=== PATIENT | female | born 1960 | race Caucasian/White ===

== ENCOUNTER 2020-04-21 18:28 | Inpatient (IN) ==
[2020-04-21] MEDS ORDERED: *HR* HYDROmorphone (PF) 1 MG/ML SYRINGE IVP ONE ×2 (19:05→21:29)
[2020-04-21] MEDS ORDERED: Ampicillin/Sulbactam 1,500 MG in 0.9 % Sodium Chloride Mini Bag 100 ML IVPB ONE (19:19)
[2020-04-21 19:23] LABS: Basophils # 0.1 K/mcL (0.0-0.2); Basophils % 0.5 %; Eosinophils # 0.2 K/mcL (0.0-0.6); Eosinophils % 0.8 %; Hematocrit 38.5 % (35.3-44.9); Hemoglobin 12.7 g/dL (11.5-15.4); Immature Granulocytes % 1.3 % (0-4); Lymphocytes # 3.5 K/mcL (0.6-4.6); Lymphocytes % 15.1 %; Mean Corpuscular Hemoglobin 31.8 pg (28.0-33.3); Mean Corpuscular Volume 96.5 fL (83.0-100.0); Mean Platelet Volume 8.3 fL (9.4-12.4); Monocytes # 1.4 K/mcL (0.0-1.3); Monocytes % 5.9 %; Nucleated Red Blood Cells 0.1 /100 WBC (0); Platelet Count 1080 K/mcL (140-400); Red Blood Count 3.99 M/mcL (3.82-4.97); Segmented Neutrophils % 76.4 %; White Blood Count 23.1 K/mcL (4.3-11.1)
[2020-04-21 19:29] LABS: Neutrophils # 17.7 K/mcL (1.6-8.9)
[2020-04-21 19:36] LABS: Activated Partial Thrombo Time 31.1 Seconds (26.0-36.0); INR 1.2; Prothrombin Time 13.7 Seconds (9.4-12.1)
[2020-04-21 19:45] LABS: Alanine Aminotransferase 18 Units/L (7-52); Albumin 4.3 g/dL (3.5-5.7); Albumin/Globulin Ratio 1.4 (1.1-2.2); Alkaline Phosphatase 96 Units/L (34-104); Aspartate Amino Transferase 19 Units/L (13-39); BUN/Creatinine Ratio 7 (6-26); Bilirubin,Total 0.4 mg/dL (0.3-1.0); Blood Urea Nitrogen 4 mg/dL (8-23); Calcium 9.4 mg/dL (8.6-10.3); Carbon Dioxide 24 mEq/L (23-29); Chloride 97 mEq/L (98-107); Globulin 3.1 g/dL (2.4-3.5); Glucose 97 mg/dL (70-105); Osmolality,Calculated 269 (280-300); Potassium 4.1 mEq/L (3.5-5.1); Sodium 131 mEq/L (136-145); Total Protein 7.4 g/dL (6.4-8.9); Troponin I < 0.03 ng/mL (< 0.04); eGFR For African Americans > 60 (> 60); eGFR For Non-African Americans > 60 (> 60)
[2020-04-21 19:59] LABS: Platelet Estimate Marked Increase (Normal)
[2020-04-21] MEDS ORDERED: Isovue-370 500 ML BOTTLE IVP ONE (20:01)
[2020-04-21] MEDS ORDERED: 0.9 % Sodium Chloride 1,000 ML IVC ONE (20:02)
[2020-04-21 20:20] LABS: C-Reactive Protein 97 mg/L (Less than 10)
[2020-04-21] MEDS ORDERED: Naloxone 0.4 MG/ML INJ IVP PRN (22:01)
[2020-04-21] MEDS ORDERED: Ondansetron ODT 4 MG TAB.RAPDIS SL PRN (22:01)
[2020-04-21] MEDS: *HR* Heparin 5,000 UNIT/ML VIAL SQ SCH (23:12)
[2020-04-21] MEDS: 0.9 % Sodium Chloride 1,000 ML IVC SCH (23:17)
[2020-04-22] MEDS: *HR* HYDROmorphone (PF) 1 MG/ML SYRINGE IVP PRN ×4 (00:06→11:05)
[2020-04-22] MEDS: Clindamycin 600 MG/50 ML 600 MG/50 ML IV.SOLN IVPB SCH ×3 (00:06→18:49)
[2020-04-22] MEDS: Acetaminophen 325 MG TABLET PO PRN ×2 (02:16→08:36)
[2020-04-22] MEDS: tiZANidine 4 MG TABLET PO PRN ×2 (02:17→08:36)
[2020-04-22] MEDS: *HR* Heparin 5,000 UNIT/ML VIAL SQ SCH (05:45)
[2020-04-22 07:13] LABS: Basophils # 0.1 K/mcL (0.0-0.2); Basophils % 0.5 %; Eosinophils # 0.3 K/mcL (0.0-0.6); Eosinophils % 1.9 %; Hematocrit 34.6 % (35.3-44.9); Immature Granulocytes % 1.3 % (0-4); Lymphocytes # 4.4 K/mcL (0.6-4.6); Lymphocytes % 25.3 %; Mean Corpuscular HGB Conc 31.8 g/dL (31.6-35.5); Mean Corpuscular Hemoglobin 31.6 pg (28.0-33.3); Mean Corpuscular Volume 99.4 fL (83.0-100.0); Mean Platelet Volume 8.5 fL (9.4-12.4); Monocytes % 7.1 %; Neutrophils # 11.2 K/mcL (1.6-8.9); Platelet Count 1000 K/mcL (140-400); Red Blood Count 3.48 M/mcL (3.82-4.97); Red Cell Distribution Width 13.1 % (11.5-14.5); Segmented Neutrophils % 63.9 %; White Blood Count 17.5 K/mcL (4.3-11.1)
[2020-04-22 07:14] LABS: Monocytes # 1.2 K/mcL (0.0-1.3)
[2020-04-22 07:31] LABS: % Iron Saturation 23 % (15-50); Iron 56 mcg/dL (50-170); Transferrin 175 mg/dL (203-362)
[2020-04-22 07:32] LABS: BUN/Creatinine Ratio 11 (6-26); Blood Urea Nitrogen 7 mg/dL (8-23); Calcium 8.6 mg/dL (8.6-10.3); Carbon Dioxide 24 mEq/L (23-29); Chloride 103 mEq/L (98-107); Glucose 89 mg/dL (70-105); Osmolality,Calculated 277 (280-300); Phosphorous 4.6 mg/dL (2.7-4.5); Potassium 4.2 mEq/L (3.5-5.1); Sodium 135 mEq/L (136-145); eGFR For African Americans > 60 (> 60); eGFR For Non-African Americans > 60 (> 60)
[2020-04-22 07:52] LABS: Platelet Estimate Marked Increase (Normal); Reactive Lymphocytes Present (Not Present); Toxic Granulation Present (Not Present)
[2020-04-22] MEDS: 0.9 % Sodium Chloride 1,000 ML IVC SCH (08:35)
[2020-04-22 08:47] LABS: Folate 5.7 ng/mL (3.0-16.0)
[2020-04-22] MEDS ORDERED: *HR* LORazepam 2 MG/ML VIAL IVP ONE (10:26)
[2020-04-22] MEDS ORDERED: Heparin 1,000 UNITS/500 mL 500 ML ONE ×2 (13:23→14:16)
[2020-04-22] MEDS ORDERED: *HR* Heparin 10,000 UNIT/10 ML VIAL ONE (13:23)
[2020-04-22] MEDS ORDERED: 0.9 % Sodium Chloride 1,000 ML ONE (13:23)
[2020-04-22] MEDS ORDERED: *HR* Midazolam HCl 2 MG/2 ML VIAL ONE ×2 (13:32→14:35)
[2020-04-22] MEDS ORDERED: *HR* FentaNYL (PF) 100 MCG/2 ML VIAL ONE ×2 (13:32→14:35)
[2020-04-22] MEDS ORDERED: Isovue-250 100 ML INFUS..BTL ONE (14:40)
[2020-04-22] MEDS ORDERED: *HR* Heparin 5,000 UNIT/ML VIAL IVP ONE (15:36)
[2020-04-22] MEDS ORDERED: *HR* Heparin 5,000 UNIT/ML VIAL IVP PRN ×2 (15:36)
[2020-04-22] MEDS ORDERED: Heparin 25,000UNIT/250ML 1/2NS 25,000 UNIT/250 ML IV.SOLN IVC SCH (15:45)
[2020-04-22] MEDS ORDERED: Morphine Sulfate 2 MG/ML SYRINGE IVP ONE (16:31)
[2020-04-22] MEDS ORDERED: *HR* Atropine Sulfate 1 MG/10 ML SYRINGE ONE (17:20)
[2020-04-22] MEDS ORDERED: Ondansetron 4 MG/2 ML VIAL IVP PRN (17:52)
[2020-04-22] MEDS ORDERED: *HR* HYDROcodone/Acet 5/325 mg TABLET PO PRN (17:52)
[2020-04-22 19:16] LABS: Hematocrit 33.2 % (35.3-44.9); Hemoglobin 10.9 g/dL (11.5-15.4); Mean Corpuscular HGB Conc 32.8 g/dL (31.6-35.5); Mean Corpuscular Hemoglobin 32.4 pg (28.0-33.3); Mean Corpuscular Volume 98.8 fL (83.0-100.0); Mean Platelet Volume 8.3 fL (9.4-12.4); Platelet Count 833 K/mcL (140-400); Red Blood Count 3.36 M/mcL (3.82-4.97); Red Cell Distribution Width 13.1 % (11.5-14.5); White Blood Count 18.1 K/mcL (4.3-11.1)
[2020-04-22 19:23] LABS: Heparin anti-factor XA UFH 0.6 IU/mL (0.30-0.70)
[2020-04-22 19:24] LABS: INR 1.3; Prothrombin Time 14.9 Seconds (9.4-12.1)
[2020-04-22 20:28] VITALS: BP 132/76
== END 2020-04-22 23:50 | disposition short-term general hospital (02) | DRG 854 ==
LOC: 3NENU 18:28 → EMEROOARM 18:28 → SUATTDRO 20:59 → 3NENU 22:05 → 2NNU 04-22 15:20
PROVIDERS: ADMIT Internal Medicine; ATTEND Internal Medicine

== ENCOUNTER 2021-12-05 22:04 | Inpatient (IN) ==
[2021-12-05 23:08] LABS: Basophils % 0.1 %; Hematocrit 26.8 % (35.3-44.9); Immature Granulocytes % 0.7 % (0-4); Immature Platelets 15.5 % (1.1-6.1); Lymphocytes # 1.7 K/mcL (0.6-4.6); Lymphocytes % 12.5 %; Mean Corpuscular Hemoglobin 37.7 pg (28.0-33.3); Mean Corpuscular Volume 101.1 fL (83.0-100.0); Mean Platelet Volume 11.6 fL (9.4-12.4); Monocytes # 0.3 K/mcL (0.0-1.3); Monocytes % 2.2 %; Neutrophils # 11.6 K/mcL (1.6-8.9); Nucleated Red Blood Cells 0.2 /100 WBC (0); Red Blood Count 2.65 M/mcL (3.82-4.97); Red Cell Distribution Width 12.6 % (11.5-14.5); Segmented Neutrophils % 84.5 %; White Blood Count 13.7 K/mcL (4.3-11.1)
[2021-12-05 23:24] LABS: Mean Corpuscular HGB Conc 37.3 g/dL (31.6-35.5); Platelet Count 64 K/mcL (140-400)
[2021-12-05 23:26] LABS: Alanine Aminotransferase 46 Units/L (7-52); Albumin 2.7 g/dL (3.5-5.7); Albumin/Globulin Ratio 0.9 (1.1-2.2); Alkaline Phosphatase 185 Units/L (34-104); Aspartate Amino Transferase 39 Units/L (13-39); BUN/Creatinine Ratio 21 (6-26); Bilirubin,Total 1.2 mg/dL (0.3-1.0); Blood Urea Nitrogen 12 mg/dL (8-23); Calcium 7.9 mg/dL (8.6-10.3); Carbon Dioxide 19 mEq/L (23-29); Chloride 87 mEq/L (98-107); Creatine Kinase 311 Units/L (30-223); Glucose 95 mg/dL (70-105); Osmolality,Calculated 252 (280-300); Potassium 2.6 mEq/L (3.5-5.1); Sodium 121 mEq/L (136-145); Total Protein 5.7 g/dL (6.4-8.9); eGFR For African Americans > 60 (> 60); eGFR For Non-African Americans > 60 (> 60)
[2021-12-05] MEDS ORDERED: Ringers Solution, Lactated 1,000 ML IVC ONE (23:59)
[2021-12-06] MEDS ORDERED: 0.9 % Sodium Chloride 1,000 ML IV ONE
[2021-12-06] MEDS ORDERED: Iopamidol - 370 500 ML MLS IVP ONE
[2021-12-06] MEDS ORDERED: Piperacillin/Tazobactam 3.375 GM in 0.9 % Sodium Chloride Mini Bag 100 ML IVPB ONE (01:17)
[2021-12-06] MEDS: Potassium Effervescent 25 MEQ TABLET.EFF PO ONE ×2 (01:21→01:54)
[2021-12-06 01:39] LABS: Chloride,Urine < 15 mEq/L; Creatinine,Urine 98 mg/dL; Sodium, Urine < 10.0 mEq/L
[2021-12-06 01:39] LABS: Bacteria,Urine Few per hpf (None-Few); Bilirubin,Urine Small (Negative); Blood,Urine Trace (Negative); Clarity,Urine Turbid (Clear); Color,Urine Yellow (Yellow); Glucose,Urine (UA) Normal (Normal); Ketones,Urine 40 mg/dL (Negative); Leukocyte Esterase,Urine Negative (Negative); Mucus,Urine Few per lpf (None-Few); Nitrite,Urine Negative (Negative); PH,Urine 6.5 pH Units (5.0-8.0); Protein,Urine Trace mg/dL (Neg-Trace); Specific Gravity,Urine 1.026 (1.010-1.025); Squamous Epithelial Cell,Urine Many per hpf (None-Few)
[2021-12-06] MEDS ORDERED: Ondansetron ODT 4 MG TAB.RAPDIS SL PRN (02:17)
[2021-12-06] MEDS ORDERED: Naloxone 0.4 MG/ML INJ IVP PRN (02:17)
[2021-12-06] MEDS ORDERED: Acetaminophen 325 MG TABLET PO PRN (02:59)
[2021-12-06] MEDS ORDERED: Nicotine 7 MG PATCH.TD24 TD PRN (04:30)
[2021-12-06] MEDS ORDERED: Piperacillin/Tazobactam 3.375 GM in 0.9 % Sodium Chloride Mini Bag 100 ML IVPB SCH (06:00)
[2021-12-06 06:03] LABS: Hematocrit 23.3 % (35.3-44.9); Hemoglobin 8.5 g/dL (11.5-15.4); Immature Platelets 15.8 % (1.1-6.1); Mean Corpuscular HGB Conc 36.5 g/dL (31.6-35.5); Mean Corpuscular Hemoglobin 37.3 pg (28.0-33.3); Mean Corpuscular Volume 102.2 fL (83.0-100.0); Mean Platelet Volume 11.5 fL (9.4-12.4); Red Blood Count 2.28 M/mcL (3.82-4.97); Red Cell Distribution Width 12.8 % (11.5-14.5); White Blood Count 15.9 K/mcL (4.3-11.1)
[2021-12-06 06:05] LABS: BUN/Creatinine Ratio 25 (6-26); Blood Urea Nitrogen 10 mg/dL (8-23); Calcium 6.6 mg/dL (8.6-10.3); Carbon Dioxide 16 mEq/L (23-29); Chloride 94 mEq/L (98-107); Glucose 96 mg/dL (70-105); Lactate Dehydrogenase 235 Units/L (140-271); Magnesium 1.7 mg/dL (1.6-2.6); Osmolality,Calculated 257 (280-300); Phosphorous 1.2 mg/dL (2.7-4.5); Sodium 124 mEq/L (136-145); eGFR For African Americans > 60 (> 60); eGFR For Non-African Americans > 60 (> 60)
[2021-12-06 06:23] LABS: INR 1.2; Prothrombin Time 13.3 Seconds (9.4-12.1)
[2021-12-06 06:49] LABS: Folate 9.9 ng/mL (3.0-16.0)
[2021-12-06] MEDS: Calcium Gluconate 1gm/50mL 1 GM/50 ML BAG IVPB SCH ×2 (08:31→09:23)
[2021-12-06] MEDS: 0.9 % Sodium Chloride 1,000 ML IVC SCH ×2 (08:37→23:44)
[2021-12-06] MEDS: Piperacillin/Tazobactam 3.375 GM in 0.9 % Sodium Chloride Mini Bag 100 ML IVPB SCH ×3 (09:09→23:42)
[2021-12-06 09:55] LABS: C-Reactive Protein 115 mg/L (Less than 10)
[2021-12-06] MEDS: Vancomycin 500 MG in 0.9 % Sodium Chloride 250 ML IVPB SCH (13:55)
[2021-12-06 17:24] LABS: Basophils % 0.1 %; Hematocrit 17.7 % (35.3-44.9); Hemoglobin 6.5 g/dL (11.5-15.4); Immature Platelets 15.6 % (1.1-6.1); Lymphocytes # 1.3 K/mcL (0.6-4.6); Lymphocytes % 8.1 %; Mean Corpuscular HGB Conc 36.7 g/dL (31.6-35.5); Mean Corpuscular Hemoglobin 37.8 pg (28.0-33.3); Mean Corpuscular Volume 102.9 fL (83.0-100.0); Mean Platelet Volume 12.5 fL (9.4-12.4); Monocytes # 0.3 K/mcL (0.0-1.3); Neutrophils # 14.4 K/mcL (1.6-8.9); Nucleated Red Blood Cells 0.2 /100 WBC (0); Red Blood Count 1.72 M/mcL (3.82-4.97); Segmented Neutrophils % 88.8 %; White Blood Count 16.2 K/mcL (4.3-11.1)
[2021-12-06 17:33] LABS: Platelet Count 37 K/mcL (140-400)
[2021-12-06 17:36] LABS: Activated Partial Thrombo Time 25.9 Seconds (26.0-36.0)
[2021-12-06 17:47] LABS: Alanine Aminotransferase 34 Units/L (7-52); Albumin 1.9 g/dL (3.5-5.7); Albumin/Globulin Ratio 1.1 (1.1-2.2); Alkaline Phosphatase 131 Units/L (34-104); Aspartate Amino Transferase 36 Units/L (13-39); BUN/Creatinine Ratio 18 (6-26); Bilirubin,Total 0.9 mg/dL (0.3-1.0); Blood Urea Nitrogen 9 mg/dL (8-23); Calcium 6.6 mg/dL (8.6-10.3); Carbon Dioxide 18 mEq/L (23-29); Chloride 100 mEq/L (98-107); Globulin 1.8 g/dL (2.4-3.5); Glucose 103 mg/dL (70-105); Osmolality,Calculated 269 (280-300); Potassium 3.1 mEq/L (3.5-5.1); Sodium 130 mEq/L (136-145); Total Protein 3.7 g/dL (6.4-8.9); eGFR For African Americans > 60 (> 60); eGFR For Non-African Americans > 60 (> 60)
[2021-12-07] MEDS: Vancomycin 500 MG in 0.9 % Sodium Chloride 250 ML IVPB SCH ×2 (03:15→14:27)
[2021-12-07 04:38] LABS: Basophils % 0.1 %; Lymphocytes % 8.6 %; Monocytes % 2.8 %; Red Blood Count 1.67 M/mcL (3.82-4.97); Red Cell Distribution Width 13.2 % (11.5-14.5)
[2021-12-07 04:40] LABS: Hematocrit 17.5 % (35.3-44.9); Hemoglobin 6.3 g/dL (11.5-15.4); Immature Granulocytes % 0.7 % (0-4); Lymphocytes # 1.8 K/mcL (0.6-4.6); Mean Corpuscular Hemoglobin 37.7 pg (28.0-33.3); Mean Corpuscular Volume 104.8 fL (83.0-100.0); Mean Platelet Volume 11.9 fL (9.4-12.4); Monocytes # 0.6 K/mcL (0.0-1.3); Neutrophils # 17.9 K/mcL (1.6-8.9); Segmented Neutrophils % 87.8 %; White Blood Count 20.4 K/mcL (4.3-11.1)
[2021-12-07 04:45] LABS: Platelet Count 33 K/mcL (140-400)
[2021-12-07 04:47] LABS: BUN/Creatinine Ratio 16 (6-26); Blood Urea Nitrogen 8 mg/dL (8-23); C-Reactive Protein 132 mg/L (Less than 10); Calcium 6.7 mg/dL (8.6-10.3); Carbon Dioxide 18 mEq/L (23-29); Chloride 104 mEq/L (98-107); Glucose 97 mg/dL (70-105); Magnesium 1.6 mg/dL (1.6-2.6); Osmolality,Calculated 274 (280-300); Phosphorous 2.8 mg/dL (2.7-4.5); Potassium 2.3 mEq/L (3.5-5.1); Sodium 133 mEq/L (136-145); eGFR For African Americans > 60 (> 60); eGFR For Non-African Americans > 60 (> 60)
[2021-12-07] MEDS: Calcium Gluconate 1gm/50mL 1 GM/50 ML BAG IVPB SCH ×2 (05:21→06:03)
[2021-12-07] MEDS ORDERED: 0.9 % Sodium Chloride 250 ML ONE (06:55)
[2021-12-07] MEDS: Piperacillin/Tazobactam 3.375 GM in 0.9 % Sodium Chloride Mini Bag 100 ML IVPB SCH ×3 (09:17→23:26)
[2021-12-07 14:37] LABS: Ferritin 819 ng/mL (10-120); Iron 30 mcg/dL (50-170); Transferrin < 75 mg/dL (203-362)
[2021-12-07] MEDS: 0.9 % Sodium Chloride 1,000 ML IVC SCH ×2 (20:21→23:27)
[2021-12-08] MEDS: Vancomycin 500 MG in 0.9 % Sodium Chloride 250 ML IVPB SCH ×2 (02:58→13:59)
[2021-12-08] MEDS: Piperacillin/Tazobactam 3.375 GM in 0.9 % Sodium Chloride Mini Bag 100 ML IVPB SCH ×2 (09:52→15:53)
[2021-12-08] MEDS: 0.9 % Sodium Chloride 1,000 ML IVC SCH ×2 (09:54→13:58)
[2021-12-08 14:55] LABS: BUN/Creatinine Ratio 18 (6-26); Basophils % 0.2 %; Blood Urea Nitrogen 8 mg/dL (8-23); C-Reactive Protein 210 mg/L (Less than 10); Calcium 6.9 mg/dL (8.6-10.3); Carbon Dioxide 15 mEq/L (23-29); Chloride 112 mEq/L (98-107); Glucose 92 mg/dL (70-105); Magnesium 1.6 mg/dL (1.6-2.6); Mean Corpuscular Hemoglobin 35.1 pg (28.0-33.3); Mean Corpuscular Volume 97.4 fL (83.0-100.0); Monocytes % 2.3 %; Nucleated Red Blood Cells 0.2 /100 WBC (0); Osmolality,Calculated 282 (280-300); Phosphorous 1.5 mg/dL (2.7-4.5); Potassium 3.4 mEq/L (3.5-5.1); Sodium 137 mEq/L (136-145); eGFR For African Americans > 60 (> 60); eGFR For Non-African Americans > 60 (> 60)
[2021-12-08 14:56] LABS: Eosinophils % 0.1 %; Hematocrit 26.1 % (35.3-44.9); Hemoglobin 9.4 g/dL (11.5-15.4); Immature Granulocytes % 2.3 % (0-4); Immature Platelets 17.3 % (1.1-6.1); Lymphocytes # 2.1 K/mcL (0.6-4.6); Lymphocytes % 9.4 %; Mean Platelet Volume 11.6 fL (9.4-12.4); Monocytes # 0.5 K/mcL (0.0-1.3); Red Blood Count 2.68 M/mcL (3.82-4.97); Red Cell Distribution Width 17.8 % (11.5-14.5); Segmented Neutrophils % 85.7 %; White Blood Count 21.9 K/mcL (4.3-11.1)
[2021-12-08 14:59] LABS: Neutrophils # 18.8 K/mcL (1.6-8.9)
[2021-12-08 15:02] LABS: Platelet Count 23 K/mcL (140-400)
[2021-12-08] MEDS ORDERED: Potassium Chloride Elixir 20 MEQ/15 ML UDC PO ONE (15:05)
[2021-12-09] MEDS: Piperacillin/Tazobactam 3.375 GM in 0.9 % Sodium Chloride Mini Bag 100 ML IVPB SCH ×3 (01:03→15:51)
[2021-12-09] MEDS: Vancomycin 500 MG in 0.9 % Sodium Chloride 250 ML IVPB SCH ×2 (01:03→14:16)
[2021-12-09] MEDS: 0.9 % Sodium Chloride 1,000 ML IVC SCH ×2 (01:04→15:50)
[2021-12-09 02:14] LABS: Basophils % 0.2 %; Hematocrit 24.3 % (35.3-44.9)
[2021-12-09 02:15] LABS: Eosinophils % 0.1 %; Hemoglobin 8.6 g/dL (11.5-15.4); Immature Granulocytes % 1.8 % (0-4); Immature Platelets 16.4 % (1.1-6.1); Lymphocytes # 2.2 K/mcL (0.6-4.6); Lymphocytes % 11.8 %; Mean Corpuscular HGB Conc 35.4 g/dL (31.6-35.5); Mean Corpuscular Hemoglobin 35.2 pg (28.0-33.3); Mean Corpuscular Volume 99.6 fL (83.0-100.0); Mean Platelet Volume 13.5 fL (9.4-12.4); Monocytes # 0.4 K/mcL (0.0-1.3); Monocytes % 2.3 %; Neutrophils # 15.8 K/mcL (1.6-8.9); Nucleated Red Blood Cells 0.2 /100 WBC (0); Red Blood Count 2.44 M/mcL (3.82-4.97); Red Cell Distribution Width 18.2 % (11.5-14.5); Segmented Neutrophils % 83.8 %; White Blood Count 18.8 K/mcL (4.3-11.1)
[2021-12-09 02:19] LABS: Platelet Count 19 K/mcL (140-400)
[2021-12-09] MEDS ORDERED: 0.9 % Sodium Chloride 250 ML IVC SCH (03:00)
[2021-12-09 03:02] LABS: BUN/Creatinine Ratio 18 (6-26); Blood Urea Nitrogen 7 mg/dL (8-23); C-Reactive Protein 201 mg/L (Less than 10); Calcium 6.4 mg/dL (8.6-10.3); Carbon Dioxide 13 mEq/L (23-29); Chloride 116 mEq/L (98-107); Glucose 89 mg/dL (70-105); Magnesium 1.5 mg/dL (1.6-2.6); Osmolality,Calculated 287 (280-300); Phosphorous 2.9 mg/dL (2.7-4.5); Potassium 2.9 mEq/L (3.5-5.1); Sodium 140 mEq/L (136-145); eGFR For African Americans > 60 (> 60); eGFR For Non-African Americans > 60 (> 60)
[2021-12-09] MEDS ORDERED: Potassium Effervescent 25 MEQ TABLET.EFF PO ONE (08:03)
[2021-12-10] MEDS: Piperacillin/Tazobactam 3.375 GM in 0.9 % Sodium Chloride Mini Bag 100 ML IVPB SCH ×3 (00:49→16:21)
[2021-12-10] MEDS: Vancomycin 500 MG in 0.9 % Sodium Chloride 250 ML IVPB SCH ×2 (00:50→12:09)
[2021-12-10 06:00] LABS: Basophils % 0.1 %; Eosinophils % 0.1 %; Hemoglobin 7.4 g/dL (11.5-15.4); Nucleated Red Blood Cells 0.4 /100 WBC (0)
[2021-12-10 06:01] LABS: Hematocrit 20.3 % (35.3-44.9); Immature Granulocytes % 4.4 % (0-4); Immature Platelets 10.4 % (1.1-6.1); Lymphocytes # 2.8 K/mcL (0.6-4.6); Lymphocytes % 17.6 %; Mean Corpuscular HGB Conc 36.5 g/dL (31.6-35.5); Mean Corpuscular Hemoglobin 35.9 pg (28.0-33.3); Mean Corpuscular Volume 98.5 fL (83.0-100.0); Mean Platelet Volume 11.9 fL (9.4-12.4); Monocytes # 0.5 K/mcL (0.0-1.3); Monocytes % 3.3 %; Neutrophils # 11.8 K/mcL (1.6-8.9); Red Blood Count 2.06 M/mcL (3.82-4.97); Red Cell Distribution Width 18.3 % (11.5-14.5); Segmented Neutrophils % 74.5 %; White Blood Count 15.8 K/mcL (4.3-11.1)
[2021-12-10 06:17] LABS: Platelet Count 44 K/mcL (140-400)
[2021-12-10 06:28] LABS: BUN/Creatinine Ratio 14 (6-26); Blood Urea Nitrogen 6 mg/dL (8-23); Carbon Dioxide 18 mEq/L (23-29); Chloride 121 mEq/L (98-107); Glucose 93 mg/dL (70-105); Magnesium 1.7 mg/dL (1.6-2.6); Osmolality,Calculated 299 (280-300); Phosphorous 1.4 mg/dL (2.7-4.5); Potassium 2.5 mEq/L (3.5-5.1); Sodium 146 mEq/L (136-145); eGFR For African Americans > 60 (> 60); eGFR For Non-African Americans > 60 (> 60)
[2021-12-10] MEDS ORDERED: Calcium Chloride 1,000 MG in 0.9 % Sodium Chloride 100 ML IVPB ONE (06:37)
[2021-12-10] MEDS: 0.9 % Sodium Chloride 1,000 ML IVC SCH ×2 (06:55→20:26)
[2021-12-10 10:38] LABS: C-Reactive Protein 127 mg/L (Less than 10)
[2021-12-11] MEDS: Piperacillin/Tazobactam 3.375 GM in 0.9 % Sodium Chloride Mini Bag 100 ML IVPB SCH ×3 (00:33→15:46)
[2021-12-11] MEDS: Vancomycin 500 MG in 0.9 % Sodium Chloride 250 ML IVPB SCH ×2 (00:34→13:52)
[2021-12-11 03:28] LABS: Basophils % 0.2 %; Eosinophils # 0.1 K/mcL (0.0-0.6); Eosinophils % 0.3 %; Hemoglobin 7.7 g/dL (11.5-15.4); Immature Platelets 13.4 % (1.1-6.1); Lymphocytes # 3.3 K/mcL (0.6-4.6); Lymphocytes % 18.1 %; Mean Corpuscular Hemoglobin 34.8 pg (28.0-33.3); Mean Corpuscular Volume 99.5 fL (83.0-100.0); Mean Platelet Volume 12.1 fL (9.4-12.4); Monocytes # 0.6 K/mcL (0.0-1.3); Monocytes % 3.5 %; Neutrophils # 13.5 K/mcL (1.6-8.9); Nucleated Red Blood Cells 0.4 /100 WBC (0); Platelet Count 41 K/mcL (140-400); Red Blood Count 2.21 M/mcL (3.82-4.97); Segmented Neutrophils % 73.9 %; White Blood Count 18.2 K/mcL (4.3-11.1)
[2021-12-11 03:47] LABS: BUN/Creatinine Ratio 17 (6-26); Blood Urea Nitrogen 7 mg/dL (8-23); C-Reactive Protein 120 mg/L (Less than 10); Calcium 6.8 mg/dL (8.6-10.3); Carbon Dioxide 17 mEq/L (23-29); Chloride 122 mEq/L (98-107); Glucose 86 mg/dL (70-105); Magnesium 1.6 mg/dL (1.6-2.6); Osmolality,Calculated 301 (280-300); Phosphorous 3.1 mg/dL (2.7-4.5); Potassium 3.4 mEq/L (3.5-5.1); Sodium 147 mEq/L (136-145); eGFR For African Americans > 60 (> 60); eGFR For Non-African Americans > 60 (> 60)
[2021-12-11] MEDS: D5% in Water 1,000 ML IVC SCH (08:56)
[2021-12-12] MEDS: Piperacillin/Tazobactam 3.375 GM in 0.9 % Sodium Chloride Mini Bag 100 ML IVPB SCH ×3 (00:26→16:27)
[2021-12-12] MEDS: D5% in Water 1,000 ML IVC SCH ×2 (00:32→07:58)
[2021-12-12 01:02] LABS: Eosinophils % 0.3 %; Monocytes % 3.7 %
[2021-12-12 01:04] LABS: Basophils % 0.2 %; Eosinophils # 0.1 K/mcL (0.0-0.6); Hematocrit 28.4 % (35.3-44.9); Hemoglobin 9.9 g/dL (11.5-15.4); Immature Granulocytes % 4.9 % (0-4); Immature Platelets 15.4 % (1.1-6.1); Lymphocytes # 2.8 K/mcL (0.6-4.6); Mean Corpuscular HGB Conc 34.9 g/dL (31.6-35.5); Mean Corpuscular Hemoglobin 31.3 pg (28.0-33.3); Mean Corpuscular Volume 89.9 fL (83.0-100.0); Neutrophils # 15.5 K/mcL (1.6-8.9); Nucleated Red Blood Cells 0.5 /100 WBC (0); Red Blood Count 3.16 M/mcL (3.82-4.97); Red Cell Distribution Width 24.2 % (11.5-14.5); Segmented Neutrophils % 76.9 %; White Blood Count 20.2 K/mcL (4.3-11.1)
[2021-12-12 01:06] LABS: Monocytes # 0.8 K/mcL (0.0-1.3); Platelet Count 41 K/mcL (140-400)
[2021-12-12 01:19] LABS: BUN/Creatinine Ratio 15 (6-26); Blood Urea Nitrogen 6 mg/dL (8-23); C-Reactive Protein 105 mg/L (Less than 10); Calcium 6.8 mg/dL (8.6-10.3); Carbon Dioxide 17 mEq/L (23-29); Chloride 119 mEq/L (98-107); Glucose 121 mg/dL (70-105); Magnesium 1.4 mg/dL (1.6-2.6); Osmolality,Calculated 295 (280-300); Phosphorous 1.8 mg/dL (2.7-4.5); Potassium 3.8 mEq/L (3.5-5.1); Sodium 143 mEq/L (136-145); eGFR For African Americans > 60 (> 60); eGFR For Non-African Americans > 60 (> 60)
[2021-12-12 01:34] LABS: Anisocytosis 3+ (Not Present); Platelet Estimate Decreased (Normal)
[2021-12-12 01:35] LABS: Polychromasia 1+ (Not Present)
[2021-12-12] MEDS: Vancomycin 500 MG in 0.9 % Sodium Chloride 250 ML IVPB SCH (02:28)
[2021-12-12] MEDS ORDERED: Lidocaine Jelly 6ml 1 APPL/6 ML JEL.PF.APP MM ONE (13:15)
[2021-12-12] MEDS ORDERED: Vancomycin 500 MG in 0.9 % Sodium Chloride 250 ML IVPB SCH (15:00)
[2021-12-12] MEDS: 0.9 % Sodium Chloride 1,000 ML IVC SCH (15:03)
[2021-12-13] MEDS: Piperacillin/Tazobactam 3.375 GM in 0.9 % Sodium Chloride Mini Bag 100 ML IVPB SCH ×3 (01:05→18:11)
[2021-12-13] MEDS: D5% in Water 1,000 ML IVC SCH (02:04)
[2021-12-13 09:31] LABS: BUN/Creatinine Ratio 11 (6-26); Blood Urea Nitrogen 5 mg/dL (8-23); Calcium 6.5 mg/dL (8.6-10.3); Carbon Dioxide 19 mEq/L (23-29); Chloride 117 mEq/L (98-107); Glucose 109 mg/dL (70-105); Magnesium 1.5 mg/dL (1.6-2.6); Osmolality,Calculated 290 (280-300); Phosphorous 2.2 mg/dL (2.7-4.5); Potassium 2.9 mEq/L (3.5-5.1); Sodium 141 mEq/L (136-145); eGFR For African Americans > 60 (> 60); eGFR For Non-African Americans > 60 (> 60)
[2021-12-13 09:49] LABS: Hematocrit 25.6 % (35.3-44.9); Immature Platelets 18.9 % (1.1-6.1); Nucleated Red Blood Cells 0.7 /100 WBC (0)
[2021-12-13 09:51] LABS: Mean Corpuscular HGB Conc 35.2 g/dL (31.6-35.5); Mean Corpuscular Hemoglobin 31.5 pg (28.0-33.3); Mean Corpuscular Volume 89.5 fL (83.0-100.0); Red Blood Count 2.86 M/mcL (3.82-4.97); Red Cell Distribution Width 24.9 % (11.5-14.5)
[2021-12-13 09:52] LABS: Platelet Count 37 K/mcL (140-400)
[2021-12-13 10:15] LABS: Eosinophils # 0.2 K/mcL (0.0-0.6); Lymphocytes # 2.1 K/mcL (0.6-4.6); Monocytes # 0.6 K/mcL (0.0-1.3); Neutrophils # 16.2 K/mcL (1.6-8.9)
[2021-12-13] MEDS ORDERED: D5% in Water 1,000 ML IVC SCH (10:15)
[2021-12-13 10:17] LABS: Anisocytosis 1+ (Not Present); Macrocytosis Present (Not Present); Platelet Estimate Marked Decrease (Normal); Poikilocytosis 1+ (Not Present)
[2021-12-13] MEDS ORDERED: Potassium Phosphate 44 MEQ in 0.9 % Sodium Chloride 250 ML IVPB ONE (12:41)
[2021-12-13] MEDS: polyethylene glycoL 3350 17 GM POWD.PACK PO SCH (12:49)
[2021-12-13] MEDS: Potassium Chloride Elixir 20 MEQ/15 ML UDC PO SCH ×2 (13:08→18:12)
[2021-12-13] MEDS ORDERED: Simethicone 80 MG TAB.CHEW PO SCH (21:00)
[2021-12-14] MEDS: Piperacillin/Tazobactam 3.375 GM in 0.9 % Sodium Chloride Mini Bag 100 ML IVPB SCH ×3 (00:40→16:47)
[2021-12-14] MEDS: polyethylene glycoL 3350 17 GM POWD.PACK PO SCH (10:09)
[2021-12-14] MEDS: Calcium Gluconate 1gm/50mL 1 GM/50 ML BAG IVPB SCH ×2 (10:10→13:25)
[2021-12-14 17:40] LABS: Basophils % 0.2 %; Red Cell Distribution Width 24.8 % (11.5-14.5)
[2021-12-14 17:42] LABS: Eosinophils % 0.7 %; Hematocrit 27.5 % (35.3-44.9); Immature Platelets 16.4 % (1.1-6.1)
[2021-12-14 17:58] LABS: Basophils # 0.1 K/mcL (0.0-0.2); Eosinophils # 0.2 K/mcL (0.0-0.6); Hemoglobin 9.2 g/dL (11.5-15.4); Immature Granulocytes % 1.5 % (0-4); Lymphocytes # 2.7 K/mcL (0.6-4.6); Lymphocytes % 11.6 %; Mean Corpuscular HGB Conc 33.5 g/dL (31.6-35.5); Mean Corpuscular Volume 92.6 fL (83.0-100.0); Mean Platelet Volume 12.9 fL (9.4-12.4); Monocytes # 1.7 K/mcL (0.0-1.3); Monocytes % 7.5 %; Nucleated Red Blood Cells 0.7 /100 WBC (0); Platelet Count 123 K/mcL (140-400); Red Blood Count 2.97 M/mcL (3.82-4.97); Segmented Neutrophils % 78.5 %
[2021-12-14 17:59] LABS: Neutrophils # 18.1 K/mcL (1.6-8.9)
[2021-12-14 18:06] LABS: BUN/Creatinine Ratio 15 (6-26); Blood Urea Nitrogen 7 mg/dL (8-23); Calcium 7.7 mg/dL (8.6-10.3); Carbon Dioxide 21 mEq/L (23-29); Chloride 119 mEq/L (98-107); Glucose 117 mg/dL (70-105); Magnesium 1.8 mg/dL (1.6-2.6); Osmolality,Calculated 297 (280-300); Phosphorous 2.8 mg/dL (2.7-4.5); Potassium 3.7 mEq/L (3.5-5.1); Sodium 144 mEq/L (136-145); eGFR For African Americans > 60 (> 60); eGFR For Non-African Americans > 60 (> 60)
[2021-12-14 18:13] LABS: Platelet Estimate Normal (Normal)
[2021-12-14 18:14] LABS: Anisocytosis 2+ (Not Present)
[2021-12-15] MEDS: Piperacillin/Tazobactam 3.375 GM in 0.9 % Sodium Chloride Mini Bag 100 ML IVPB SCH ×3 (01:31→15:50)
[2021-12-15 04:51] LABS: Basophils % 0.2 %; Eosinophils # 0.2 K/mcL (0.0-0.6); Eosinophils % 0.8 %; Hematocrit 25.5 % (35.3-44.9); Hemoglobin 8.3 g/dL (11.5-15.4); Immature Granulocytes % 1.6 % (0-4); Lymphocytes # 2.2 K/mcL (0.6-4.6); Lymphocytes % 9.8 %; Mean Corpuscular HGB Conc 32.5 g/dL (31.6-35.5); Mean Corpuscular Hemoglobin 31.3 pg (28.0-33.3); Mean Corpuscular Volume 96.2 fL (83.0-100.0); Mean Platelet Volume 12.9 fL (9.4-12.4); Monocytes % 8.8 %; Neutrophils # 17.9 K/mcL (1.6-8.9); Nucleated Red Blood Cells 0.6 /100 WBC (0); Platelet Count 104 K/mcL (140-400); Red Blood Count 2.65 M/mcL (3.82-4.97); Red Cell Distribution Width 25.1 % (11.5-14.5); Segmented Neutrophils % 78.8 %; White Blood Count 22.7 K/mcL (4.3-11.1)
[2021-12-15 05:00] LABS: Basophils # 0.1 K/mcL (0.0-0.2)
[2021-12-15 05:09] LABS: BUN/Creatinine Ratio 14 (6-26); Blood Urea Nitrogen 7 mg/dL (8-23); Calcium 7.6 mg/dL (8.6-10.3); Carbon Dioxide 23 mEq/L (23-29); Chloride 119 mEq/L (98-107); Glucose 108 mg/dL (70-105); Magnesium 1.7 mg/dL (1.6-2.6); Osmolality,Calculated 299 (280-300); Phosphorous 2.9 mg/dL (2.7-4.5); Potassium 4.2 mEq/L (3.5-5.1); Sodium 145 mEq/L (136-145); eGFR For African Americans > 60 (> 60); eGFR For Non-African Americans > 60 (> 60)
[2021-12-15 05:46] LABS: Anisocytosis 2+ (Not Present); Platelet Estimate Decreased (Normal)
[2021-12-15 05:47] LABS: Poikilocytosis 1+ (Not Present)
[2021-12-15] MEDS: polyethylene glycoL 3350 17 GM POWD.PACK PO SCH (08:28)
[2021-12-15] MEDS ORDERED: *HR* HYDROmorphone (PF) 1 MG/ML SYRINGE IVP PRN ×2 (10:18→10:49)
[2021-12-15] MEDS ORDERED: *HR* HYDROmorphone (PF) 1 MG/ML SYRINGE IVP ONE (10:47)
[2021-12-15] MEDS ORDERED: Haloperidol Lactate 5 MG/ML VIAL IVP PRN (16:07)
[2021-12-15] MEDS: Scopolamine Patch 1.5 MG PATCH.TD72 TD SCH (17:30)
[2021-12-16 03:27] LABS: BUN/Creatinine Ratio 20 (6-26); Blood Urea Nitrogen 11 mg/dL (8-23); Calcium 7.9 mg/dL (8.6-10.3); Carbon Dioxide 21 mEq/L (23-29); Chloride 120 mEq/L (98-107); Glucose 109 mg/dL (70-105); Magnesium 1.7 mg/dL (1.6-2.6); Osmolality,Calculated 302 (280-300); Phosphorous 3.8 mg/dL (2.7-4.5); Potassium 4.7 mEq/L (3.5-5.1); Sodium 146 mEq/L (136-145); eGFR For African Americans > 60 (> 60); eGFR For Non-African Americans > 60 (> 60)
[2021-12-16] MEDS: *HR* LORazepam 2 MG/ML VIAL IVP PRN (04:48)
[2021-12-16] MEDS ORDERED: Furosemide 20 MG/2 ML VIAL IVP ONE (07:15)
[2021-12-16] MEDS: *HR* HYDROmorphone (PF) 1 MG/ML SYRINGE IVP PRN ×3 (07:40→22:38)
[2021-12-17] MEDS: *HR* HYDROmorphone (PF) 1 MG/ML SYRINGE IVP PRN ×2 (01:41→19:05)
[2021-12-17] MEDS: *HR* LORazepam 2 MG/ML VIAL IVP PRN ×2 (09:41→14:11)
[2021-12-18] MEDS: *HR* HYDROmorphone (PF) 1 MG/ML SYRINGE IVP PRN ×2 (01:25→09:51)
[2021-12-18] MEDS: *HR* LORazepam 2 MG/ML VIAL IVP PRN (09:06)
[2021-12-18] MEDS ORDERED: Furosemide 40 MG/4 ML VIAL IVP ONE (09:58)
[2021-12-18 11:13] VITALS: BP 102/62; PULSE 125; TEMP 98.9; O2SAT 71
[2021-12-18] MEDS ORDERED: *HR* LORazepam 2 MG/ML VIAL IVP SCH (15:00)
[2021-12-18] MEDS ORDERED: *HR* HYDROmorphone (PF) 1 MG/ML SYRINGE IVP SCH (15:00)
[2021-12-18] MEDS: Scopolamine Patch 1.5 MG PATCH.TD72 TD SCH (15:10)
== END 2021-12-18 18:32 | disposition expired | DRG 871 ==
LOC: 3NENU 22:04 → EMEROOARM 22:04 → 3NENU 12-06 03:51 → SUATTDRO 12-06 18:02
PROVIDERS: ADMIT Student in an Organized Health Care Education/Training Program; ATTEND Internal Medicine